=== PATIENT | male | born 1955 | race Caucasian/White ===

== ENCOUNTER → 2016-12-05 | Outpatient (REF) | payer BC | LOC: M LAB REF 16:20 | PROVIDERS: ATTEND Internal Medicine Medical Oncology | DX: D69.6 Thrombocytopenia, unspecified (principal) ==

== ENCOUNTER → 2016-12-14 | Outpatient (REF) | payer BC ==
[2016-12-14 13:29] LABS: REASON FOR REVIEW COMPREHENSIVE REVIEW
== END ==
LOC: M LAB REF 13:02
PROVIDERS: ATTEND Internal Medicine Medical Oncology
DX: D69.3 Immune thrombocytopenic purpura (principal)

== ENCOUNTER → 2016-12-18 | Outpatient (CLI) | payer OTHER ==
--- NOTE | 2016-12-18 08:04 | REP ---
Clinical: Elevated liver function tests and thrombocytopenia. Technique: Graves scale ultrasound using curved array transducer. Findings: The liver and pancreas are normal in contour, size, and echogenicity without focal hepatic or pancreatic lesions identified. The gallbladder demonstrates layering sludge and stones without wall thickening or pericholecystic fluid. No biliary ductal dilatation is appreciated, and the common bile duct measures 3.9 mm diameter. The right kidney is normal in reniform shape without hydronephrosis and measures 10.5 x 6.5 x 7.3 cm. No ascites. Visualized portions of the abdominal aorta normal. Impression: Cholelithiasis. Normal liver. Signed by Braeden Edouard MD 12/18/2016 07:56 A
== END ==
LOC: M RAD 06:47
PROVIDERS: ATTEND Internal Medicine Medical Oncology
DX: R94.5 Abnormal results of liver function studies (principal); K80.20 Calculus of gallbladder without cholecystitis without obstruction; D69.6 Thrombocytopenia, unspecified

== ENCOUNTER → 2016-12-20 | Outpatient (REF) | payer OTHER ==
[2016-12-20 14:12] LABS: INR 0.98
== END | disposition home or self-care (01) ==
LOC: M LAB REF 11:15
PROVIDERS: ATTEND Internal Medicine Medical Oncology
DX: D69.59 Other secondary thrombocytopenia (principal)

== ENCOUNTER → 2016-12-31 | Outpatient (CLI) | payer OTHER ==
--- NOTE | 2017-01-01 08:23 | REP ---
Clinical: Hypertension. Technique: Precontrast axial T1, T2, T2 fat sat, in / out of phase and coronal TRUE FISP and T2 fat sat sequences followed by postcontrast axial T1 arterial, portal venous phase, and multiple delayed phase sequences. Findings: Liver, spleen, pancreas, bilateral adrenal glands and kidneys are essentially normal. Small gallstones are identified without findings to suggest acute cholecystitis or biliary ductal dilatation. Multiple postcontrast sequences demonstrate normal arterial phase, portal venous phase, and delayed phase imaging of the solid organs as well as normal appearance to the hepatic vasculature, renal vasculature, and aorta and major branch vessels through the abdomen. Impression: Normal pre and postcontrast MRI of the abdomen. Normal portal and arterial vasculature including normal appearing bilateral renal arteries. Signed by Braeden Edouard MD 01/01/2017 08:15 A
== END ==
LOC: M RAD 17:25
PROVIDERS: ATTEND Internal Medicine Medical Oncology
DX: K76.6 Portal hypertension (principal); D69.6 Thrombocytopenia, unspecified
CPT/HCPCS: 74183; A9576

== ENCOUNTER → 2017-01-21 | Outpatient (REF) | payer OTHER ==
[2017-01-21 14:02] LABS: HEPATITIS B SURFACE ANTIBODY NEGATIVE (POSITIVE)
== END ==
LOC: M LAB REF 13:27
PROVIDERS: ATTEND Internal Medicine Medical Oncology
DX: D69.6 Thrombocytopenia, unspecified (principal)

== ENCOUNTER 2017-04-12 11:48 | Emergency (ER) | payer OTHER ==
[~2017-04-12] VITALS: Ht 172.7 cm; Wt 96.2 kg
[2017-04-12] MEDS ORDERED: [UNRECOGNIZED DRUG - CODE] PO (12:11)
[2017-04-12] MEDS ORDERED: OMEP40CA2 PO (12:11)
[2017-04-12] MEDS ORDERED: ATOR1TAB19 PO (12:11)
[2017-04-12] MEDS ORDERED: METF500T PO (12:11)
[2017-04-12] MEDS ORDERED: LISI10TA4 PO (12:11)
[2017-04-12 13:13] LABS: BASO % 0.4 % (0.0-1.0); EOS % 0.4 % (0.0-3.0); LARGE UNSTAINED CELL # 0.1 K/mm3 (0.0-0.4); LARGE UNSTAINED CELL % 1.1 % (0.0-4.0); LYMPH # 0.6 K/mm3 (1.5-4.5); LYMPH % 10.8 % (24.0-44.0); MEAN CORPUSCULAR HEMOGLOBIN 35.9 pg (27.0-33.0); MEAN CORPUSCULAR HGB CONC 34.4 g/dl (32.0-36.5); MEAN CORPUSCULAR VOLUME 104.3 fl (80.0-96.0); MONO # 0.3 K/mm3 (0.0-0.8); MONO % 5.3 % (0.0-5.0); NEUTROPHILS # 3.9 K/mm3 (1.8-7.7); WHITE BLOOD COUNT 4.7 K/mm3 (4.0-10.0)
[2017-04-12 13:36] LABS: ALBUMIN 3.4 GM/DL (3.2-5.2); ALBUMIN/GLOBULIN RATIO 0.76 (1.00-1.93); ALKALINE PHOSPHATASE 105 U/L (45-117); ALT/SGPT 70 U/L (12-78); ANION GAP 9 MEQ/L (8-16); AST/SGOT 45 U/L (15-37); BILIRUBIN,DIRECT 0.2 MG/DL (0.0-0.2); BILIRUBIN,TOTAL 0.8 MG/DL (0.2-1.0); BLOOD UREA NITROGEN 12 MG/DL (7-18); CALCIUM LEVEL 9.2 MG/DL (8.8-10.2); CARBON DIOXIDE LEVEL 26 MEQ/L (21-32); CHLORIDE LEVEL 104 MEQ/L (98-107); CREATININE FOR GFR 1.02 MG/DL (0.70-1.30); GLOMERULAR FILTRATION RATE > 60.0 (>49); GLUCOSE, FASTING 187 MG/DL (80-110); POTASSIUM SERUM 3.9 MEQ/L (3.5-5.1); SODIUM LEVEL 139 MEQ/L (136-145); TOTAL PROTEIN 7.9 GM/DL (6.4-8.2)
--- NOTE | 2017-04-12 13:54 | REP ---
CHEST, TWO VIEWS: Two views of the chest are performed. Comparison 03/20/2017. There is scattered interstitial fibrosis bilaterally without evidence of acute infiltrate. Heart is normal in size. Mediastinal silhouette is unchanged. There are mild degenerative changes of the spine. IMPRESSION: Stable chronic findings without evidence of acute infiltrate. Signed by Grover Graves MD 04/12/2017 02:28 P
[2017-04-12 14:14] LABS: PLATELET COUNT, AUTOMATED 33 k/mm3 (150-450)
[2017-04-12] MEDS ORDERED: ONDANSETRON 4MG/2ML VIAL (J2405) IV ONE (15:15)
[2017-04-12] MEDS ORDERED: MECLIZINE 25 MG TABLET PO ONE (15:15)
--- NOTE | 2017-04-12 15:55 | REP ---
CT Head without contrast HISTORY: Vertigo COMPARISON: None There is no intraparenchymal hemorrhage, acute infarct, mass or midline shift. The ventricular system is normal in appearance. The cortical sulci are dilated consistent with minimal volume loss. There is no extra cerebral collection. There is no fracture. The visualized sinuses are clear. IMPRESSION: Minimal volume loss. Signed by Fred Bernal MD 04/12/2017 03:47 P
[2017-04-12] MEDS ORDERED: ZOFR4TAB3 PO (16:03)
[2017-04-12] MEDS ORDERED: MECL-68 PO (16:03)
[2017-04-12 16:46] VITALS: BP 118/52
--- NOTE | 2017-04-13 07:27 | ECGEPIP ---
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
== END 2017-04-12 16:48 | disposition home or self-care (01) ==
LOC: M ED 15:03
DX: R42 Dizziness and giddiness (principal); D69.6 Thrombocytopenia, unspecified
CPT/HCPCS: 70450; 71020; 80048; 80076; 81001; 84443; 85025; 93005; 96374; 99284; J2405

== ENCOUNTER → 2017-08-15 | Outpatient (REF) | payer OTHER ==
[~2017-08-15] MED LIST: ATOR1TAB19 PO; LISI10TA4 PO; MECL-68 PO; METF500T13 PO; OMEP40CA2 PO; ZOFR4TAB3 PO; [UNRECOGNIZED DRUG - CODE] PO
[2017-08-15 11:44] LABS: INR 1.02
[2017-08-15 12:53] LABS: PERCENT SATURATION 26.9 % (19.7-50.0)
[2017-08-17 14:09] LABS: TISSUE TRANSGLUTAMINASE IgG <2 U/mL (0-5)
== END ==
LOC: M LAB REF 11:06
PROVIDERS: ATTEND Internal Medicine Medical Oncology
DX: D69.6 Thrombocytopenia, unspecified (principal)

== ENCOUNTER 2017-10-22 07:30 | Inpatient (IN) | payer OTHER ==
[2017-10-22] VITALS (9 sets, daily range): BP systolic 100–121; BP diastolic 55–72
[~2017-10-22] VITALS: Ht 172.7 cm; Wt 90.7 kg
[~2017-10-22 07:30] MED LIST changes: +VALS1TAB46 PO; +VITA500T3 PO
[2017-10-22] MEDS ORDERED: LR 1,000 ML IV ONE (07:45)
[2017-10-22 08:05] LABS: MEAN CORPUSCULAR HGB CONC 34.1 g/dl (32.0-36.5); MEAN CORPUSCULAR VOLUME 102.8 fl (80.0-96.0); WHITE BLOOD COUNT 4.6 10^3/uL (4.0-10.0)
[2017-10-22 08:16] LABS: ANION GAP 5 MEQ/L (8-16); BLOOD UREA NITROGEN 10 MG/DL (7-18); CARBON DIOXIDE LEVEL 28 MEQ/L (21-32); CHLORIDE LEVEL 107 MEQ/L (98-107); CREATININE FOR GFR 0.97 MG/DL (0.70-1.30); GLOMERULAR FILTRATION RATE > 60.0 (>49); GLUCOSE, FASTING 141 MG/DL (80-110); SODIUM LEVEL 140 MEQ/L (136-145)
[2017-10-22] MEDS ORDERED: MIDAZOLAM INJ 2 MG/2 ML VIAL (J2250) As Ordered ONE (08:23)
[2017-10-22] MEDS ORDERED: fentaNYL 100 MCG/2 ML INJECTION (J3010) As Ordered ONE ×2 (08:24→14:43)
[2017-10-22 08:30] LABS: IMMATURE PLATELET FRACTION % 8.4 % (0.0-10.9); PLATELET COUNT, AUTOMATED 39 10^3/uL (150-450)
[2017-10-22] MEDS ORDERED: BUPIVACAINE HCL 0.25% 30 ML VIAL As Ordered ONE (09:05)
[2017-10-22] MEDS ORDERED: ONDANSETRON 4MG/2ML VIAL (J2405) IV PRN ×2 (14:15→15:00)
[2017-10-22] MEDS ORDERED: METOCLOPRAMIDE INJ 10MG/2ML VIAL (J2765) IV PRN ×2 (14:15→15:00)
[2017-10-22] MEDS ORDERED: NALOXONE INJ 0.4 MG/1 ML VIAL (J2310) IV PRN (14:15)
[2017-10-22] MEDS ORDERED: diphenhydrAMINE INJ 50MG/ML VIAL (J1200) IV PRN (14:15)
[2017-10-22] MEDS ORDERED: EPIDURAL/PCA KEYS XX PRN (14:15)
[2017-10-22] MEDS ORDERED: MORPHINE 1MG/ML IN 0.9% NACL 100ML IV BAG IV PRN (14:15)
[2017-10-22] MEDS ORDERED: NALBUPHINE HCL 10 MG/ML AMP (J2300) IV PRN (14:15)
[2017-10-22] MEDS: fentaNYL 100 MCG/2 ML INJECTION (J3010) IV PRN ×2 (14:48→14:53)
[2017-10-22] MEDS ORDERED: LR 1,000 ML IV SCH (15:00)
[2017-10-22] MEDS ORDERED: PERCOCET 5MG/325MG TAB PO PRN (15:00)
[2017-10-22] MEDS ORDERED: MEPERIDINE INJ 25 MG/ML VIAL (J2175) IV PRN (15:00)
[2017-10-22 15:08] LABS: MEAN CORPUSCULAR HEMOGLOBIN 35.2 pg (27.0-33.0); MEAN CORPUSCULAR VOLUME 106.7 fl (80.0-96.0); WHITE BLOOD COUNT 14.9 10^3/uL (4.0-10.0)
[2017-10-22 15:26] LABS: PLATELET COUNT, AUTOMATED 87 10^3/uL (150-450)
[2017-10-22 15:35] LABS: ANION GAP 10 MEQ/L (8-16); BLOOD UREA NITROGEN 9 MG/DL (7-18); CALCIUM LEVEL 7.9 MG/DL (8.8-10.2); CARBON DIOXIDE LEVEL 25 MEQ/L (21-32); CHLORIDE LEVEL 107 MEQ/L (98-107); GLOMERULAR FILTRATION RATE > 60.0 (>49); GLUCOSE, FASTING 192 MG/DL (80-110); POTASSIUM SERUM 3.8 MEQ/L (3.5-5.1); SODIUM LEVEL 142 MEQ/L (136-145)
[2017-10-22] MEDS: PANTOPRAZOLE 40MG INJ (PROTONIX) (C9113) IV SCH (17:20)
[2017-10-22] MEDS: LR 1,000 ML IV SCH ×2 (17:21→22:33)
[2017-10-22] MEDS: HumaLOG INSULIN (NovoLOG) PER UNIT SC SCH (17:58)
[2017-10-22] MEDS: DOCUSATE SODIUM 100 MG CAP PO SCH (21:03)
[2017-10-23] VITALS (12 sets, daily range): BP systolic 96–113; BP diastolic 54–68
[2017-10-23 05:07] LABS: BASO % 0.2 % (0.0-1.0); EOS % 0.1 % (0.0-3.0); IMMATURE GRANULOCYTE % 0.8 % (0-0); LYMPH # 0.7 10^3/uL (1.5-4.5); LYMPH % 5.3 % (24.0-44.0); MEAN CORPUSCULAR HEMOGLOBIN 35.3 pg (27.0-33.0); MEAN CORPUSCULAR HGB CONC 32.8 g/dl (32.0-36.5); MEAN CORPUSCULAR VOLUME 107.5 fl (80.0-96.0); MONO # 1.7 10^3/uL (0.0-0.8); MONO % 13.9 % (0.0-5.0); NEUTROPHILS # 9.7 10^3/uL (1.8-7.7); NEUTROPHILS % 79.7 % (36.0-66.0); PLATELET COUNT, AUTOMATED 89 10^3/uL (150-450); WHITE BLOOD COUNT 12.2 10^3/uL (4.0-10.0)
[2017-10-23 05:30] LABS: ALBUMIN 2.5 GM/DL (3.2-5.2); ALBUMIN/GLOBULIN RATIO 0.63 (1.00-1.93); ALKALINE PHOSPHATASE 100 U/L (45-117); ALT/SGPT 51 U/L (12-78); AMYLASE 37 U/L (25-115); ANION GAP 7 MEQ/L (8-16); AST/SGOT 50 U/L (7-37); BLOOD UREA NITROGEN 11 MG/DL (7-18); CALCIUM LEVEL 8.2 MG/DL (8.8-10.2); CARBON DIOXIDE LEVEL 27 MEQ/L (21-32); CHLORIDE LEVEL 103 MEQ/L (98-107); CREATININE FOR GFR 0.94 MG/DL (0.70-1.30); GLOMERULAR FILTRATION RATE > 60.0 (>49); GLUCOSE, FASTING 130 MG/DL (80-110); POTASSIUM SERUM 4.3 MEQ/L (3.5-5.1); SODIUM LEVEL 137 MEQ/L (136-145); TOTAL PROTEIN 6.5 GM/DL (6.4-8.2)
[2017-10-23] MEDS: HumaLOG INSULIN (NovoLOG) PER UNIT SC SCH ×4 (05:39→17:51)
[2017-10-23] MEDS: LR 1,000 ML IV SCH ×2 (06:00→17:47)
--- NOTE | 2017-10-23 07:04 | REP ---
Single intraoperative fluoroscopic view of the abdomen for foreign body: On a single fluoroscopic view provided the field of view is of limited. However, there is no radiopaque foreign body within the field of view. Signed by Grover Balderas MD 10/22/2017 02:17 P
[2017-10-23] MEDS: PANTOPRAZOLE 40MG INJ (PROTONIX) (C9113) IV SCH (08:49)
[2017-10-23] MEDS: DOCUSATE SODIUM 100 MG CAP PO SCH ×2 (08:50→20:54)
[2017-10-23] MEDS: ACETAMINOPHEN 500 MG TAB PO SCH ×3 (08:50→17:47)
[2017-10-23] MEDS: ALVIMOPAN 12 MG CAPSULE (ENTEREG) PO SCH ×2 (11:50→20:54)
--- NOTE | 2017-10-23 15:35 | IPN ---
DATE: 10/23/2017 HISTORY OF PRESENT ILLNESS: The patient is a 62-year-old man admitted on 10/22/2017, for splenectomy for immune thrombocytopenia. A laparoscopic approach was attempted but converted to an open procedure for control of bleeding. He received a platelet transfusion but no packed red blood cells were transfused. He was kept in the ICU overnight for close monitoring. VITAL SIGNS: He had a T-max of 100.2 at noon today and had been afebrile to that point. His pulse is in the 60s to as high as 90. Blood pressure has been stable. Intake and output: The patient had 7600 mL in yesterday with 3000 out. Today he has had 600 of urine output. PHYSICAL EXAMINATION: The patient is alert and appears fairly comfortable. Sclerae are anicteric. Skin is warm and dry. He has a nasogastric tube in place. Heart exam shows a regular rhythm. The lungs are clear. The abdomen is perhaps mildly distended. He has infrequent bowel sounds. His dressing is dry with a small blood stain laterally. LABORATORY STUDIES: This morning showed a white count of 12, hemoglobin of 11, hematocrit 33 and platelet count of 89,000. Chemistry profile showed normal electrolytes with a BUN of 11, creatinine 0.9 and a glucose of 130. Liver function tests are normal with an amylase of 37 and a lipase of 164. IMPRESSION: Doing well postoperative day #1 from splenectomy for immune thrombocytopenia. He shows no signs of acute pancreatitis with normal amylase and lipase. His platelet count is elevated slightly to 89,000 and his hematocrit is stable in the low 30s. PLAN: The patient's NG tube and Wesley catheter are to be removed today. I will cut his IV rate back slightly expecting that there is still some third space fluid to be mobilized. I will allow him to take a few sips of clear liquids and he was encouraged to be out of bed at least several times today. If he is doing well later in the day we may consider transfer to a medical/surgical floor from the unit.
[2017-10-24] VITALS: BP 118/67
[2017-10-24] MEDS: ACETAMINOPHEN 500 MG TAB PO SCH ×5 (00:56→23:08)
[2017-10-24 04:00] VITALS: BP 116/63
[2017-10-24] MEDS: LR 1,000 ML IV SCH (05:58)
[2017-10-24] MEDS: HumaLOG INSULIN (NovoLOG) PER UNIT SC SCH ×2 (06:00)
[2017-10-24 07:16] LABS: BASO # 0.1 10^3/uL (0.0-0.2); BASO % 0.6 % (0.0-1.0); EOS # 0.3 10^3/uL (0.0-0.50); EOS % 2.2 % (0.0-3.0); IMMATURE GRANULOCYTE % 0.6 % (0-0); LYMPH # 1.1 10^3/uL (1.5-4.5); LYMPH % 7.6 % (24.0-44.0); MEAN CORPUSCULAR HEMOGLOBIN 35.2 pg (27.0-33.0); MEAN CORPUSCULAR HGB CONC 33.3 g/dl (32.0-36.5); MEAN CORPUSCULAR VOLUME 105.6 fl (80.0-96.0); MONO % 18.2 % (0.0-5.0); NEUTROPHILS # 10.2 10^3/uL (1.8-7.7); NEUTROPHILS % 70.8 % (36.0-66.0); PLATELET COUNT, AUTOMATED 104 10^3/uL (150-450); WHITE BLOOD COUNT 14.4 10^3/uL (4.0-10.0)
[2017-10-24 07:36] LABS: ANION GAP 7 MEQ/L (8-16); BLOOD UREA NITROGEN 14 MG/DL (7-18); CARBON DIOXIDE LEVEL 28 MEQ/L (21-32); CHLORIDE LEVEL 103 MEQ/L (98-107); CREATININE FOR GFR 0.75 MG/DL (0.70-1.30); GLOMERULAR FILTRATION RATE > 60.0 (>49); GLUCOSE, FASTING 92 MG/DL (80-110); SODIUM LEVEL 138 MEQ/L (136-145)
[2017-10-24 08:06] LABS: MONO # 2.6 10^3/uL (0.0-0.8); POSITIVE DIFF POS FLAG
[2017-10-24 08:07] LABS: ADD MANUAL DIFFER NO; DIFF SLIDE NUMBER 76
[2017-10-24 08:30] VITALS: BP 113/57
[2017-10-24] MEDS: PANTOPRAZOLE 40MG INJ (PROTONIX) (C9113) IV SCH (08:46)
[2017-10-24] MEDS: DOCUSATE SODIUM 100 MG CAP PO SCH ×2 (08:47→20:29)
[2017-10-24] MEDS: ALVIMOPAN 12 MG CAPSULE (ENTEREG) PO SCH ×2 (08:47→20:29)
[2017-10-24] MEDS ORDERED: NORCO, ANEXSIA 5/325MG TABLET (HYDROcodone/ACETAMINOPHEN) PO PRN ×2 (11:00)
[2017-10-24 12:00] VITALS: BP 111/60
[2017-10-24 16:30] VITALS: BP 110/63
[2017-10-24 20:00] VITALS: BP 116/60
--- NOTE | 2017-10-24 21:37 | IPN ---
DATE: 10/24/2017 The patient is now postop day #2 from a laparoscopic converted to open splenectomy for immune thrombocytopenia. He was moved to the pediatric floor yesterday on leaving the ICU. He has generally done well and is tolerating a diet, voiding well and having no significant pain. Vital signs show that he has had a low grade temperature to 101.3 late this afternoon. He had been afebrile all during the previous evening and morning. His other vitals are stable with a pulse in the 70s. Intake and output shows 1540 in, yesterday it was 1710 out. Today he has had 2800 of urine recorded. PHYSICAL EXAMINATION: The patient is lying quietly in the hospital bed. He is alert and oriented. Heart exam shows a regular rate and rhythm. Lung exam shows perhaps somewhat diminished breath sounds at the bases bilaterally. The abdomen is mildly protuberant, but soft with active bowel sounds. His incision is clean and dry. Laboratory studies this morning showed a white count of 14,000 with a hemoglobin of 10, hematocrit 30 and a platelet count of 104,000. Chemistry profile showed normal electrolytes, BUN, creatinine and glucose of 92. Pathology today shows splenomegaly with features consistent with immune thrombocytopenia. IMPRESSION: The patient is doing very well 2 days out from his open splenectomy. His platelet count has come up to 104,000 and his hematocrit is hanging pretty stable at about 30. He is making excellent urine today and I anticipate his hematocrit may actually go up a hair in the next few days. PLAN: The patient had his diet advanced to regular today which he tolerated. He is off all IV fluids. He reports that Tylenol 1 gram every 6 hours is adequate pain control for him. We will need to keep an eye on his temperature and if this remains elevated I will obtain a urinalysis and a chest x-ray. I will recheck his blood count in the morning. MARVA
[2017-10-25] VITALS: BP 112/58
[2017-10-25 04:00] VITALS: BP 109/65
[2017-10-25] MEDS: ACETAMINOPHEN 500 MG TAB PO SCH (06:06)
[2017-10-25 08:00] VITALS: BP 135/63
[2017-10-25] MEDS ORDERED: metFORMIN (GLUCOPHAGE) 500 MG TAB PO SCH (08:00)
[2017-10-25] MEDS ORDERED: PANTOPRAZOLE 40MG TAB (PROTONIX) PO SCH (09:00)
[2017-10-25] MEDS ORDERED: VALSARTAN 80 MG TAB (DIOVAN) PO SCH (09:00)
[2017-10-25 09:09] LABS: MEAN CORPUSCULAR HEMOGLOBIN 34.9 pg (27.0-33.0); MEAN CORPUSCULAR HGB CONC 33.4 g/dl (32.0-36.5); MEAN CORPUSCULAR VOLUME 104.5 fl (80.0-96.0); PLATELET COUNT, AUTOMATED 152 10^3/uL (150-450); RED CELL DISTRIBUTION WIDTH 14.2 % (11.5-14.5); WHITE BLOOD COUNT 12.7 10^3/uL (4.0-10.0)
[2017-10-25 09:10] LABS: ADD MANUAL DIFFER YES; DIFF SLIDE NUMBER 84; POSITIVE DIFF POS FLAG
[2017-10-25] MEDS: DOCUSATE SODIUM 100 MG CAP PO SCH (09:21)
[2017-10-25 09:27] LABS: EOSINOPHILS 7 % (0-5)
--- NOTE | 2017-10-25 10:16 | RO ---
DATE OF PROCEDURE: 10/22/2017 PREOPERATIVE DIAGNOSIS: Immune thrombocytopenia. POSTOPERATIVE DIAGNOSIS: Immune thrombocytopenia with splenomegaly. PROCEDURE PERFORMED: Laparoscopic converted to open splenectomy. SURGEON: Sulaiman Feldman MD DIRECTOR OF FLIGHT OPERATIONS: Dr. Ott ANESTHESIA: General. COMPLICATIONS: Bleeding requiring conversion to an open splenectomy. INDICATIONS FOR PROCEDURE: The patient is a 61-year-old man with a history of immune thrombocytopenia. 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 He is now admitted for a laparoscopic splenectomy. OPERATIVE PROCEDURE: The patient had his blood count checked just before surgery and showed a platelet count of 39,000. He has had no spontaneous bleeding and we ensured that there were platelets available in the blood bank. He was taken to the operating room where he was placed under general endotracheal anesthesia. A Wesley catheter was inserted. Thromboembolic deterrent stockings (TEDS) and sequential were utilized. Using a clinton bag, he was rolled about 30 degrees to the right. His pressure points were padded. He was prepped and draped in a sterile fashion to expose the entire abdomen. 0.25% Marcaine was used for local anesthesia at the trocar sites. Initial entry was in the left upper quadrant slightly above the umbilicus and to the left. After achieving local anesthesia, a small skin incision was made and a 5-mm port was placed over a 5 mm scope and this was advanced through the abdominal wall without difficulty. Inspection was performed. The spleen appeared somewhat darker in color than normal and was clearly somewhat enlarged. There was an unusual appearance to the anterior aspect of the left lobe of the liver. It had almost a small cratered area anteriorly that was perhaps 6-8 cm in diameter and appeared slightly pale and depressed. The right lobe of the liver appeared more normal. Visualized loops of the stomach and small and large bowel appeared normal. A 5 mm trocar was placed just to the left of the midline, high in the epigastrium. A third 5 mm port was placed in the lateral left upper quadrant and a 10-mm port was placed in the left upper quadrant as well to the left of the initial port site. The patient was tilted to a reverse Trendelenburg position. Inspection was performed and showed that there was an arterial branch coming to the inferior pole of the spleen. This was readily identified. A this very small branch was divided using the harmonic scalpel. Some fibrofatty tissue on the medial aspect of the spleen inferiorly was then mobilized away. The gastrosplenic ligament and dissection was carried up along the greater curve of the stomach dividing the short gastric vessels, again using the harmonic scalpel without difficulty. This allowed better exposure of the area around the splenic hilum. Dissection then worked cephalad along the hilar side of the spleen. A medium-sized artery and vein were identified approaching the lower third of the spleen. These were carefully dissected free and then both structures were doubly clipped and divided. I worked up toward the main hilar vessels dividing some fibrofatty tissue with the harmonic. To gain greater exposure toward the superior aspect of the spleen, I elected to try further mobilizing the greater curve of the stomach away from the superior pole. There appeared to be a final short gastric vessel high up along the edge of the spleen. In dividing this there was some bleeding that resulted. Attempts to control this were initially taken using the harmonic. Subsequently, I was able to identify an end of the vessel on the gastric side and attempted to control this with a hemoclip but visualization was difficult due to the ongoing blood loss. The patient lost several hundred mL of blood while attempting to control this. After utilizing all reasonable attempts to control this laparoscopically, I felt it was appropriate to proceed to an open procedure to secure control of the bleeding. Anesthesia was notified. They obtained the platelets from the blood bank and he was transfused apheresis pack of platelets. This occurred early in the course of identifying the bleeding. He was also crossmatched for blood. The abdomen was rapidly deflated and the trocars were removed. The abdomen was entered through a left subcostal incision that essentially connected several of his trocar sites. The abdomen was opened and initially the area was packed with laps and retractors were placed. Attempts to expose this area even with the abdomen open proved quite difficult. The area was high up beneath the diaphragm between the greater curve of the stomach and the superior tip of the spleen. Ultimately with this area packed, I incised the lateral attachments of the spleen and mobilized the spleen from lateral to medial posteriorly. With the tail of the pancreas thus exposed and the vessels of the hilum evident, the vessels were clamped with a long Iris clamp. This allowed division of the hilar vessels and the spleen could be removed. The spleen was passed off. The left upper quadrant was packed with lap pads. Small bleeding vessels in the area of the initial bleed from the short gastrics were identified and controlled using the harmonic. Attention was then turned to ligation of the hilar vessels. The single large clamp was replaced by several smaller clamps to take the vascular tissues in several smaller bundles. The tail of the pancreas was identified and appeared uninjured. The vessels were ligated with #0 silk sutures and the clamps were removed. Several smaller vessels along the retroperitoneum were controlled with cautery. The left upper quadrant was then irrigated with warm saline and this was then removed. The area was left packed with dry lap pads for several minutes and then reinspected and again small oozing spots were controlled with cautery. Final inspection revealed no further bleeding. Anesthesia converted his orogastric tube to a nasogastric tube. I inspected for any evidence of splenules and there were none. There did not appear to be any bleeding suggestive of a dangerously low platelet count or coagulopathy. His estimated blood loss was approximately 1500 mL. After ensuring that hemostasis was excellent the incision was closed in layers using #1 Vicryl. The innermost layer was taken as a running closure and the outer layers were closed with interrupted simple sutures of #1 Vicryl. The skin incision was closed with skin donte. The patient tolerated the procedure well. He did briefly require pressors, but this resolved rapidly. His hematocrit was checked on the HemoCue at the bedside, yielding a hematocrit of approximately 30-32 and he did not receive any packed red blood cells. He was awakened in the operating room and extubated and moved to the recovery room in stable condition. His Wesley catheter and NG tube were left in place. Plan was to transport him postop to the intensive care unit for close monitoring.
--- NOTE | 2017-10-25 10:30 | REP ---
CHEST, SINGLE VIEW: Single view of the chest is performed. Comparison 04/12/2017. There is mild atelectasis/infiltrate in the left lung base. Right lung is clear. Heart is normal in size. Mediastinal silhouette is unchanged. There are degenerative changes of the spine. Metallic clips are seen in the left upper quadrant of the abdomen. IMPRESSION: Mild streaky left lower lobe atelectasis/infiltrate. Signed by Grover Graves MD 10/25/2017 04:58 P
[2017-10-25 11:41] VITALS: BP 115/68
[2017-10-25 12:00] VITALS: BP 115/68
[2017-10-25] MEDS ORDERED: ACETAMINOPHEN 500 MG TAB PO PRN (12:00)
--- NOTE | 2017-10-25 17:37 | IPN ---
DATE: 10/25/2017 at 12:43 p.m. The patient is now postoperative day 3 from a laparoscopic converted to open splenectomy for immune thrombocytopenia. He was advanced to a regular diet yesterday. He has been reporting flatus but no bowel movement yet. His urine output has been good. He was taking routine Tylenol for pain management and denies any pain today and says he thinks he does not even need the Tylenol. VITAL SIGNS: Show that he had a peak temperature of 101.3 at 16:30 on October 24. He has been afebrile since a low-grade temperature at 8 p.m. last night. His other vital signs are within normal limits and stable. Intake and output yesterday reported 2400 in and 3200 out. PHYSICAL EXAMINATION: The patient is lying quietly on his bed. He is alert and oriented. He appears comfortable. Heart exam shows a regular rate and rhythm in the 60s to 70s. The lungs are clear to auscultation. The abdomen is perhaps mildly protuberant. He has a healing long left subcostal incision with surgical donte in place. There is some bruising at the lateral end of this but no sign of infection. He has active bowel sounds. The calves are nontender to palpation. Laboratory studies today show a white count of 13 with a hemoglobin of 11, hematocrit of 33, and platelet count of 152,000. His chemistry profile was not repeated today. Chest x-ray was done this morning because of his history of fever last night. He has some minimal-appearing atelectasis in the left lower lung but no sign of an effusion. IMPRESSION: The patient is doing extremely well postoperative day 3 from an open splenectomy. His platelet count is up to 152,000. His hematocrit has gone back up a few points after he mobilized some third space fluid. He appears comfortable and was taking only Tylenol yesterday. PLAN: The patient will be discharged home today. He can take a diet as tolerated. I advised him that my only concern was his temperature last evening. I would recommend that he continue his incentive spirometry until he follows up in the office next week. He knows that if he has a fever or chills that without his spleen he will be less able to fight certain infections and should seek care immediately. He can take a shower as desired but was advised against a bath or swimming. He is scheduled for a followup appointment in my office on October 30 at 8:30 in the morning. At that point, I would anticipate we could remove his surgical donte and apply some Steri-Strips. He will resume all of his preadmission medications. MARVA
[2017-10-25] MEDS ORDERED: ATORVASTATIN 10 MG TAB PO SCH (21:00)
[2017-10-26] MEDS ORDERED: OMEPRAZOLE 20 MG CAP PO SCH (09:00)
== END 2017-10-25 14:05 | disposition home or self-care (01) | DRG 650 ==
LOC: M OR 07:30 → M ICU 16:05 → M PED 10-23 18:21
PROVIDERS: ADMIT Surgery; ATTEND Surgery
PROC: 0W3G0ZZ Control Bleeding in Peritoneal Cavity, Open Approach (ICD-10-PCS; 2017-10-22)
PROC: 30233R1 Transfusion of Nonautologous Platelets into Peripheral Vein, Percutaneous Approach (ICD-10-PCS; 2017-10-22)
PROC: 07TP0ZZ Resection of Spleen, Open Approach (ICD-10-PCS; principal; 2017-10-22 09:30)
DX: D69.6 Thrombocytopenia, unspecified (principal); R16.1 Splenomegaly, not elsewhere classified